=== PATIENT | male | born 1965 ===

== ENCOUNTER 2025-07-15 07:36 | Outpatient (CLI) | payer OTHER ==
[~2025-07-15 07:36] MED LIST: AMITRIPTYLINE H50 MG PO; ATORVASTATIN CA40 MG PO; CLONAZEPAM0.5 MG PO; COZAAR50 MG PO; INTUNIV3 MG PO; JANUMET 50-5001 EACH PO; LEXAPRO20 MG PO; SYNTHROID50 MCG PO
== END 2025-07-15 07:39 | disposition home or self-care (01) ==
LOC: SONOGRAMA 07:36
PROVIDERS: ATTEND Internal Medicine Endocrinology, Diabetes & Metabolism
DX: N18.2 Chronic kidney disease, stage 2 (mild) (principal); E78.2 Mixed hyperlipidemia; E11.9 Type 2 diabetes mellitus without complications